=== PATIENT | male | born 1960 | race Caucasian/White ===

== ENCOUNTER 2020-12-17 15:08 | Emergency (ER) | payer OTHER ==
[~2020-12-17] VITALS: Ht 182.9 cm; Wt 113.6 kg
[2020-12-17] MEDS ORDERED: AMOXICILLIN 8751 TAB PO ×3 (16:43→16:59)
[2020-12-17] MEDS ORDERED: NORCO 325 MG-51 TAB PO ×3 (16:44→16:59)
[2020-12-17 16:48] VITALS: BP 138/64; PULSE 72; TEMP 97.4
== END 2020-12-17 17:15 | disposition home or self-care (01) ==
LOC: COL.ER 15:08
DX: S61.254A Open bite of right ring finger without damage to nail, initial encounter (principal); W54.0XXA Bitten by dog, initial encounter